=== PATIENT | male | born 1940 | race Caucasian/White ===

== ENCOUNTER 2017-07-07 12:57 | Inpatient (IN) | payer OTHER ==
[~2017-07-07] VITALS: Ht 188 cm; Wt 126.6 kg
[~2017-07-07 12:57] MED LIST: ALLEGRA ALLERG180 MG PO; ASPIR 8181 MG PO; ATORVASTATIN CA40 MG PO; CALCIUM 600 +1 EAC2 PO; CARVEDILOL25 MG PO; CENTRUM SILVER1 EAC4 PO; CLARITIN10 MG PO; DIOVAN 80 MG TA80 M1 PO; FLOMAX0.4 MG PO; HYDROCODON-ACE1 EAC7 PO; LASIX 20 MG TAB20 MG PO; LISINOPRIL10 MG PO; MOBIC15 MG PO; PRILOSEC 20 MG20 MG PO; XARELTO10 MG PO; ZOLOFT50 MG PO
[2017-07-07 13:12] VITALS: BP 103/55
[2017-07-07 13:40] LABS: URINE BILIRUBIN NEGATIVE (Negative); URINE BLOOD 2+ (Negative); URINE CLARITY CLOUDY; URINE COLOR YELLOW; URINE GLUCOSE-RANDOM NEGATIVE (Negative); URINE KETONES NEGATIVE (Negative); URINE LEUKOCYTES-REFLEX 2+ (Negative); URINE NITRITE-REFLEX NEGATIVE (Negative); URINE PROTEIN 2+ (Negative); URINE UROBILINOGEN 0.2 E.U./dl (0.2-1.0)
[2017-07-07 13:45] LABS: BACTERIA-REFLEX >30 Many /HPF (None Seen); URINE WBC-REFLEX >25 Many /HPF (0-5)
[2017-07-07 13:46] LABS: CASTS None Seen /LPF (None Seen); CRYSTALS None Seen /LPF (None Seen); SQUAMOUS NONE SEEN /LPF (0-3); WBC CLUMPS Many (None Seen)
[2017-07-07 13:51] LABS: INFLUENZA A ANTIGEN None Detected (None Detect); INFLUENZA B ANTIGEN None Detected (None Detect)
[2017-07-07 14:00] LABS: HEMATOCRIT 29.9 % (42.0-52.0); HEMOGLOBIN 9.9 gm/dL (14.0-18.0); MCH 26.9 pg (26.0-34.0); MCHC 33.2 g/dL (28.0-37.0); MCV 80.9 fL (80.0-100.0); MPV 7.4 fl. (7.2-11.1); NUCLEATED RBCS 0 /100WBC; PLATELET COUNT* 130 thou/uL (150-400); RBC 3.69 mil/uL (4.50-6.00); RDW-CV 16.6 % (10.5-14.5); WBC 8.9 thou/uL (4.0-11.0)
[2017-07-07 14:13] LABS: CALCIUM 8.8 mg/dL (8.5-10.1); CREATININE 1.3 mg/dL (0.6-1.3); POTASSIUM 3.8 mmol/L (3.5-5.1)
[2017-07-07 14:20] LABS: ALBUMIN 3.1 g/dL (3.4-5.0); TOTAL BILIRUBIN 1.2 mg/dL (<0.1-1.0); TOTAL PROTEIN 6.7 g/dL (6.4-8.2); TROPONIN-I LEVEL 0.09 ng/mL (<0.06)
[2017-07-07 14:23] LABS: ABSOLUTE LYMPHOCYTES 0.7 thou/uL (0.8-5.3); ABSOLUTE MONOCYTES 0.6 thou/uL (0.0-1.2); ABSOLUTE NEUTROPHILS 7.6 thou/uL (1.6-8.1); MACROCYTES 1+; PLATELET ESTIMATE ADEQUATE
[2017-07-07 17:18] VITALS: BP 109/49
[2017-07-07 18:00] VITALS: BP 116/56
[2017-07-07] MEDS ORDERED: CIPRO500 MG PO (18:29)
--- NOTE | 2017-07-07 18:38 | NUR ---
RECEIVED REPORT FROM DAYSI IN ER. PT ARRIVED TO TELE FLOOR AT 1735. VSS. O2 SAT 94% ON ROOM AIR, BUT QUICKLY FELL TO 86% - 2L PER NC PLACED. CARDAIC MONITOR PLACED TRACING SR BBB. ADMISSION ASSESSMENT, HISTORY, EDUCATION AND VITAL SIGNS COMPLETED CHARTED. PT ORIENTED TO ROOM, BED, AND CALL LIGHT. STRIP PRINTED AND PUT IN CHART. FALL AGREEMENT AND MEDICARE FORM SIGNED. PT FALL RISK; FALL PRECATUIONS IN PLACE. MEDS RECONCILED. PT A&O X4. UP WITH ASSIT TO THE BATHROOM. PT REPORTS DYSURIA AND CONSTANT PAIN IN LOWER ABDOMEN, /, THAT HAS BEEN GOING ON FOR WEEKS. AT BEDSIDE. PT EATING AND DRINKING WITHOUT ISSUE. HOURLY ROUNDING. CALL LIGHT IS WITHIN REACH. WILL CONTINUE TO MONITOR FOR DURATION OF SHIFT.
[2017-07-07 20:30] VITALS: BP 116/57
[2017-07-08] VITALS (7 sets, daily range): BP systolic 102–136; BP diastolic 51–80
--- NOTE | 2017-07-08 04:23 | NUR ---
ASSUMED CARE AT 1930, ASSESSMENT CHARTED. PATIENT ALERT/ORIENTED X4, RESTING IN BED. UP WITH ASSIST. DENIES PAIN OR NEEDS. REFUSING SCD'S. MEDS PER MAR. FALL PRECAUTIONS IN PLACE. AT BEDSIDE. DR. MANTILLA NOTIFIED REGARDING HOME MEDS, ORDERS RECEIVED AND NOTED. BED ALARM ON. CALL LIGHT WITHIN REACH, ENCOURAGED TO CALL FOR NEEDS.
--- NOTE | 2017-07-08 10:35 | NUR ---
RECEIVED REPORT FROM ALONDRA BARCENAS. ASSUMED PT CARE AT 0735. PT LAYING IN BED. URINAL HAS APPROX 100 ML CLOUDY, YELLOW URINE WITH FOUL ODOR AT 0830. DR. PHILLIPS ROUNDED, ORDER FOR CT PELVIS PLACED, CLARIFIED PT HAD CT ABD PELVIS 07/07/17. CT PELVIS CANCELLED PER VICE PRESIDENT QUALITY IMPROVEMENT ISAAC MARTINEZ. ORDER NOTED FOR PVR BLADDER SCANS. URINAL EMPTIED OF 100 MLS URINE AT 1035. BLADDER SCAN AT THIS TIME SHOWS 162 MLs IN BLADDER. EDUCATION GIVEN TO PT ON RATIONALE FOR SCANS OF BLADDER POST VOID. PT STATES ACCEPTANCE AND UNDERSTANDING OF TEACHING.
--- NOTE | 2017-07-08 11:35 | NUR ---
PT CALLED OUT FOR ASSIST TO BR. URINAL HAS 40 MLs POST VOID. PT PROVIDED PRIVACY AND EDUCATION THAT BLADDER SCAN WOULD BE OBTAINED AGAIN AND IS IN AGREEMENT. BLADDER SCAN SHOWS 47 MLs PVR.
--- NOTE | 2017-07-08 15:00 | NUR ---
RECEIVED REPORT FROM LEONARD RN AT 0720. PT IN ROOM SITTING ON EDGE OF BED, AFTER USING URINAL. 100 MLS OF FOUL SMELLING, CLOUDY URINE EMTPIED. VS OBTAINED. ASSESSMENT COMPLETE. SR BBB ON TELE MONITOR. ORDER NOTED FROM DR. PHILLIPS TO USE BLADDER SCAN FOR PVR. PV OBTAINED AND DOCUMENTED. NEEDED ITEMS AND CALL LIGHT IN REACH. PT CHANGED TO MED/SURG STATUS. PT WILL BE TRANSPORTED TO ROOM 102. REPORT CALLED TO ALONDRA ECHEVERRIA.
--- NOTE | 2017-07-08 16:23 | EKG ---
[place] [address] ELECTROCARDIOGRAM REPORT Name: CHANEL SYKES JR Room: [address] ADM IN M.R.#: [id number] Admission: 07/07/17 Attend Phys: Marychuy Mccauley Discharge: Date of : 42 Report #: [id number] THIS REPORT FOR: //name// [facility] ED Test Date: 2017-07-07 Test Time: 13:13:43 Pat Name: CHANEL SYKES Department: Room: [facility] Gender: M Counseling Services Director: [place] : 1940 Requested By: Fanta Mcconnell Order Number: [id number] MD: Alex Nascimento Measurements Intervals [place] Rate: 105 P: 3 MD: 151 QRS: -27 QRSD: 147 T: 138 QT: 368 QTc: 487 Interpretive Statements Sinus tachycardia Left bundle branch block Baseline wander in lead(s) V2 Compared to ECG 05/30/2017 09:07:07 heart rate has increased Electronically Signed On 07-08-2017 16:23:08 BLUEPRINTING MACHINE OPERATOR by Alex Nascimento [email or web address] <ELECTRONICALLY SIGNED> By: Alex Nascimento MD, [facility] 07/08/17 1623 1313 1313 Alex Nascimento MD, [facility] /EPI
--- NOTE | 2017-07-08 17:31 | NUR ---
PT TRANSFERED FROM 2W TO UNIT AT 1447. ASSESSMENT WAS PERFORMED AND DOCUMENTED. ORIENTATED PT TO NEW ROOM AND SURROUNDINGS. PRV WAS TAKEN AND LESS THAN 24ML. PT IS IN GOOD SPIRITS AND GOAL IS TO DISCHARGE TOMORROW. CALL LIGHT IS IN REACH AND BED IN LOWEST AND LOCKED POSITION. FALL PRECUATIONS ARE IN PLACE AND BED ALARM IS SET. PT IS DENIES NEEDS AND WANTS. NO C/O PAIN BUT DOES C/O DISCOMFORT IN THE PELVIC AREA WHEN NEEDING TO EMPTY BLADDER.
[2017-07-09 00:34] VITALS: BP 128/58
[2017-07-09 04:29] LABS: ABSOLUTE EOSINOPHILS 0.1 thou/uL (0.0-0.7); ABSOLUTE MONOCYTES 0.5 thou/uL (0.0-1.2); ABSOLUTE NEUTROPHILS 3.6 thou/uL (1.6-8.1); BASOPHILS 0.2 %; EOSINOPHILS 1.2 %; HEMATOCRIT 26.2 % (42.0-52.0); HEMOGLOBIN 8.5 gm/dL (14.0-18.0); LYMPHOCYTES 20.2 %; MCH 26.3 pg (26.0-34.0); MCHC 32.6 g/dL (28.0-37.0); MCV 80.8 fL (80.0-100.0); MONOCYTES 8.9 %; NUCLEATED RBCS 0 /100WBC; PLATELET COUNT* 93 thou/uL (150-400); POLYS 69.5 %; RBC 3.24 mil/uL (4.50-6.00); RDW-CV 16.6 % (10.5-14.5); WBC 5.1 thou/uL (4.0-11.0)
--- NOTE | 2017-07-09 05:10 | NUR ---
PT. PROGRESSING TOWARDS GOALS, DID NOT USE CALL LIGHT LAST VOID, 300CC EMPTIED OUT OF URINAL, REINSTRUCTED TO CALL NURSE AFTER VOIDING. WILL CONTINUE TO MONITOR.
[2017-07-09 05:52] LABS: CALCIUM 8.5 mg/dL (8.5-10.1); CREATININE 1.1 mg/dL (0.6-1.3); POTASSIUM 4.1 mmol/L (3.5-5.1)
[2017-07-09 09:00] VITALS: BP 140/73
--- NOTE | 2017-07-09 15:00 | NUR ---
VISITED WITH PT. HE IS NONE TO CM FROM PREVIOUS SURGERY IN MAY. HE SAID HE IS GETTING ALONG REALLY WELL FROM KNEE SURGERY. HE IS USING A CANE BUT HAS A WALKER AT HOME. USED [facility] AFTER DISCHARGE. HE LIVES WITH HIS AND SHE CAN ASSIST HIM AT DISCHARGE NEEDED. CM WILL FOLLOW FOR ANY DISCHARGE NEEDS.
[2017-07-09 16:20] VITALS: BP 126/66
--- NOTE | 2017-07-09 17:49 | NUR ---
PATIENT IS ALERT AND ORIENTED VERY PLEASANT. NO COMPLAINTS OF ANY KIND TODAY. VITAL SIGNS STABLE ON ROOM AIR, CALL LIGHT IS IN REACH. FAMILY AT BEDSIDE PART OF THE DAY. PATIENT IS VOIDING AND STILL HAVING RETENTION. NEW ANTIBIOTICS STARTED. IV IN RIGHT AC WORKS WELL. WILL CONTINUE TO MONITOR.
[2017-07-09 20:30] VITALS: BP 131/60
[2017-07-10 04:44] LABS: ALBUMIN 2.5 g/dL (3.4-5.0); CALCIUM 8.6 mg/dL (8.5-10.1); CREATININE 1.1 mg/dL (0.6-1.3); POTASSIUM 4.4 mmol/L (3.5-5.1); TOTAL BILIRUBIN 0.3 mg/dL (<0.1-1.0); TOTAL PROTEIN 6.1 g/dL (6.4-8.2)
[2017-07-10 04:53] LABS: ABSOLUTE EOSINOPHILS 0.1 thou/uL (0.0-0.7); ABSOLUTE LYMPHOCYTES 0.9 thou/uL (0.8-5.3); ABSOLUTE MONOCYTES 0.4 thou/uL (0.0-1.2); ABSOLUTE NEUTROPHILS 2.1 thou/uL (1.6-8.1); BASOPHILS 0.3 %; EOSINOPHILS 3.1 %; HEMATOCRIT 25.4 % (42.0-52.0); HEMOGLOBIN 8.5 gm/dL (14.0-18.0); LYMPHOCYTES 25.8 %; MCH 26.6 pg (26.0-34.0); MCHC 33.3 g/dL (28.0-37.0); MCV 79.9 fL (80.0-100.0); MONOCYTES 12.4 %; MPV 8.3 fl. (7.2-11.1); NUCLEATED RBCS 0 /100WBC; PLATELET COUNT* 102 thou/uL (150-400); POLYS 58.4 %; RBC 3.18 mil/uL (4.50-6.00); RDW-CV 16.6 % (10.5-14.5); WBC 3.5 thou/uL (4.0-11.0)
--- NOTE | 2017-07-10 07:35 | NUR ---
Alert and oriented x 4. He is up independently in his room. He voided last night and PVR was 160 mls. He denies pain or nausea. This am IV in right AC came out. He did lose some of his IV antibiotic but its believed most of it went in. New IV started in left forearm 20 gauge. He has slept well.
[2017-07-10 08:25] VITALS: BP 141/80
[2017-07-10 12:25] VITALS: BP 141/80
--- NOTE | 2017-07-10 12:44 | CON ---
[address] [address] CONSULTATION Name: ISIDORO SYKES JR Room: [address] IN .R.#: [id number] Admission: 07/07/17 Attend Phys: Marychuy Mccauley Discharge: Date of : 42 Report #: [id number] THIS REPORT FOR: //name// CC: Andrea Lund DATE OF SERVICE: 07/09/2017 ATTENDING PHYSICIAN: Amarjit Lund DO REASON FOR EVALUATION: Complicated urinary tract infections with isolation of multiple resistant Escherichia coli that does carry an ESBL gene, may well have prostatitis as well. HISTORY OF PRESENT ILLNESS: Chart reviewed, patient examined. This is a 76-year-old male with known vasculopathy who underwent left total knee arthroplasty in mid May. Postop course was complicated by urinary tract infection, was evaluated by Urology, treated including ciprofloxacin which he received an extended course due to concern about prostatitis, having completed the therapy fairly recently. He presented to the Emergency Room on the with fever, chills, dysuria, some nausea; was confirmed to have marked pyuria with microscopic examination of the urine. Urine culture now with growth of Escherichia coli that is greater than 10 to the fifth that is ESBL producing, notably resistant to quinolones. He is still moderately symptomatic. He is not encephalopathic. Denies any pulmonary related complaints. ALLERGIES: None known. MEDICINES: Include enoxaparin, pantoprazole, ciprofloxacin, furosemide, meloxicam, tamsulosin, carvedilol, aspirin, sertraline, atorvastatin. PAST MEDICAL HISTORY: As noted above, has coronary artery stents, reflux, hypertension, hyperlipidemia, elevated prostate specific antigen, negative biopsy, total knee arthroplasty on the left. SOCIAL HISTORY: Nonsmoker, no ethanol. FAMILY HISTORY: Noncontributory. REVIEW OF SYSTEMS: Denies significant pulmonary-related complaints. PHYSICAL EXAMINATION: GENERAL: He is alert, cooperative, appropriate. He is not encephalopathic. VITAL SIGNS: T-max 100.9 last evening, more recently 98; pulse 80; respirations 16; blood pressure 140/73. SKIN: Warm, dry[place] [address] CONSULTATION Name: ISIDORO SYKES JR Room: [address]#: [id number] Admission: 07/07/17 Attend Phys: Marychuy Mccauley Discharge: Date of : 42 Report #: [id number] HEENT: Unremarkable. NECK: Supple. LUNGS: Diminished, otherwise clear breath sounds. HEART: Regular. I do not appreciate any murmur. ABDOMEN: Soft, nontender, nondistended. EXTREMITIES: No cyanosis. GENITOURINARY: Deferred. RECTAL: Deferred. LABORATORY DATA: Blood cultures sterile thus far. Urine culture with greater than 10 to the fifth Escherichia coli that is in vitro susceptible to amikacin, gentamicin, imipenem, nitrofurantoin, Zosyn and Bactrim. Electrolytes: Sodium 141, potassium 4.1, chloride 107, bicarbonate is 26, BUN and creatinine 21 and 1.1. CBC: White count of 5.1, H and H 8.5 and 26.2, platelets of 93. CT abdomen and pelvis showed no acute process, prostate enlargement with bladder wall thickening, possible from hypertrophy or outlet obstruction. Lactic acid 2.0. Liver functions unrevealing. Albumin 31, total protein of 6.7. Estimated GFR of 54. Chest x-ray: No acute process. Influenza antigen was negative. Urinalysis: Greater than 25 white cells, greater than 30 bacteria. ASSESSMENT AND PLAN: Complicated urinary tract infection. I certainly appreciate may well have had, in addition to cystitis, prostatic inflammation as well. We will continue parenteral antimicrobial therapy. Did go and talk in detail with the patient and spouse. See how he does over the next 24-48 hours, perhaps may at that point be able to transition to oral therapy; Bactrim may be our best option at this point to complete the therapy. <ELECTRONICALLY SIGNED> By: Isidoro Pal MD 07/10/17 1244 1256 0255Jobabita Pal MD /nt
[2017-07-10] MEDS ORDERED: BACTRIM DS TAB1 EACH PO (14:02)
--- NOTE | 2017-07-10 14:06 | NUR ---
ASSUMED CARE OF PATIENT AFTER SHIFT CHANGE THIS MORNING. PATIENT AWAKE, ALERT, AND ORIENTED APPROPRIATELY. PHYSICAL ASSESSMENT COMPLETED AND CHARTED. NO COMPLAINTS OF PAIN. SCHEDULED MEDICATIONS GIVEN, SEE EMAR FOR DOCUMENTATION. VITAL SIGNS STABLE. OXYGEN SATURATION WITHIN NORMAL LIMITS ON ROOM AIR. PATIENT HAS BEEN UP AD JUAN PABLO. USES CALL LIGHT APPROPRIATELY. RECEIVED ORDERS TO DISCHARGE PATIENT HOME. NURSING WILL CONTINUE TO MONITOR UNTIL DISCHARGE.
--- NOTE | 2017-07-10 15:16 | NUR ---
DISCHARGE PAPERWORK COMPLETED AND SIGNED BY ALL APPROPRIATE PARTIES, ON PATIENT'S CHART. DISCUSSED WITH PATIENT. SCRIPTS GIVEN TO PATIENT AND DISCUSSED. ALL QUESTIONS ANSWERED. PATIENT DISCHARGED AT 1515. ESCORTED TO PARKING LOT BY THIS NURSE.
== END 2017-07-10 15:15 | disposition home or self-care (01) | DRG 872 ==
LOC: M.ERS 12:57 → M.TBA-ER 16:20 → M.2W 16:20 → M.ORTHSURG 07-08 14:55
PROVIDERS: Internal Medicine; Nurse Practitioner Family; ADMIT Internal Medicine
DX: A41.9 Sepsis, unspecified organism (principal); E44.1 Mild protein-calorie malnutrition; N39.0 Urinary tract infection, site not specified; N41.9 Inflammatory disease of prostate, unspecified; D50.0 Iron deficiency anemia secondary to blood loss (chronic); Z96.652 Presence of left artificial knee joint; K21.9 Gastro-esophageal reflux disease without esophagitis; I10 Essential (primary) hypertension; E78.5 Hyperlipidemia, unspecified; B96.20 Unspecified Escherichia coli [E. coli] as the cause of diseases classified elsewhere; I25.10 Atherosclerotic heart disease of native coronary artery without angina pectoris; D69.6 Thrombocytopenia, unspecified; Z79.899 Other long term (current) drug therapy; Z79.82 Long term (current) use of aspirin; Z95.5 Presence of coronary angioplasty implant and graft; Z68.35 Body mass index [BMI] 35.0-35.9, adult

== ENCOUNTER 2017-08-11 09:07 | Inpatient (IN) | payer OTHER ==
[~2017-08-11] VITALS: Ht 188 cm; Wt 115.2 kg
[~2017-08-11 09:07] MED LIST changes: +BACTRIM DS TAB1 EACH PO; +CIPRO500 MG PO
[2017-08-11 09:09] VITALS: BP 150/65
[2017-08-11 10:04] LABS: ABSOLUTE EOSINOPHILS 0.1 thou/uL (0.0-0.7); ABSOLUTE LYMPHOCYTES 1.7 thou/uL (0.8-5.3); ABSOLUTE MONOCYTES 0.4 thou/uL (0.0-1.2); ABSOLUTE NEUTROPHILS 2.8 thou/uL (1.6-8.1); BASOPHILS 0.4 %; EOSINOPHILS 1.5 %; HEMOGLOBIN 10.1 gm/dL (14.0-18.0); LYMPHOCYTES 34.2 %; MCH 25.9 pg (26.0-34.0); MCHC 32.6 g/dL (28.0-37.0); MCV 79.5 fL (80.0-100.0); MONOCYTES 7.1 %; MPV 7.5 fl. (7.2-11.1); NUCLEATED RBCS 0 /100WBC; PLATELET COUNT* 227 thou/uL (150-400); POLYS 56.8 %; RDW-CV 17.4 % (10.5-14.5)
[2017-08-11 10:08] LABS: CALCIUM 8.9 mg/dL (8.5-10.1); CREATININE 1.2 mg/dL (0.6-1.3); POTASSIUM 4.1 mmol/L (3.5-5.1)
[2017-08-11 10:15] LABS: ALBUMIN 3.4 g/dL (3.4-5.0); TOTAL BILIRUBIN 0.4 mg/dL (<0.1-1.0); TOTAL PROTEIN 7.1 g/dL (6.4-8.2); TROPONIN-I LEVEL 0.12 ng/mL (<0.06)
[2017-08-11 10:55] LABS: URINE BILIRUBIN NEGATIVE (Negative); URINE BLOOD TRACE (Negative); URINE CLARITY CLEAR; URINE COLOR YELLOW; URINE GLUCOSE-RANDOM NEGATIVE (Negative); URINE KETONES NEGATIVE (Negative); URINE LEUKOCYTES-REFLEX NEGATIVE (Negative); URINE NITRITE-REFLEX NEGATIVE (Negative); URINE PROTEIN NEGATIVE (Negative); URINE UROBILINOGEN 0.2 E.U./dl (0.2-1.0)
--- NOTE | 2017-08-11 12:35 | NUR ---
RODRIGO NOTIFIED UPON PT RETURN FROM CT. PT CONNECTED TO MONITOR
[2017-08-11 14:02] VITALS: BP 142/53
[2017-08-11 14:39] VITALS: BP 127/60
[2017-08-11 14:45] VITALS: BP 127/60
--- NOTE | 2017-08-11 18:50 | NUR ---
FARZAD RESTING IN BED. DENIES CHEST PAIN. MED REC, MEDCIATION EDUCATION, AND NEW ORDERS RECEIVED. KALANET TO HAVE DIAGNOSTIC CATH TOMORROW WITH POSSIBLE INTERVENTION, PER DR BEAL. VITAL SIGNS STABLE. HOULRY ROUNDING COMPLETED FOR PATIENT SAFETY.
[2017-08-11 20:10] VITALS: BP 126/56
[2017-08-11 23:53] VITALS: BP 124/61
[2017-08-12] VITALS (14 sets, daily range): BP systolic 132–153; BP diastolic 57–88
--- NOTE | 2017-08-12 04:51 | NUR ---
PATIENT HAS REMAINED ALERT AND ORIENTED X 4 THROUGHOUT THE SHIFT AND RESTING QUIETLY ON HOURLY ROUNDS. PATIENT REPORTED RIGHT BACK SPASMS TONIGHT. DR. SARABIA NOTIFIED AND A ONE TIME ORDER FOR IV FENTANYL WAS PROVIDED TO GOOD EFFECT. NPO AT MIDNIGHT FOR CARDIAC CATH TODAY. CONSENT SIGNED. PATIENT REMAINS ON HEPARIN DRIP. VITAL SIGNS STABLE. DENIES CHEST PAIN OR SHORTNESS OF AIR. CONTINUE TO MONITOR.
[2017-08-12 05:08] LABS: CALCIUM 8.4 mg/dL (8.5-10.1); CREATININE 1.1 mg/dL (0.6-1.3); POTASSIUM 3.7 mmol/L (3.5-5.1)
[2017-08-12 05:12] LABS: ABSOLUTE EOSINOPHILS 0.1 thou/uL (0.0-0.7); ABSOLUTE MONOCYTES 0.3 thou/uL (0.0-1.2); ABSOLUTE NEUTROPHILS 2.5 thou/uL (1.6-8.1); BASOPHILS 0.5 %; EOSINOPHILS 1.5 %; HEMATOCRIT 27.9 % (42.0-52.0); HEMOGLOBIN 9.2 gm/dL (14.0-18.0); LYMPHOCYTES 40.2 %; MCH 25.7 pg (26.0-34.0); MCV 77.9 fL (80.0-100.0); MPV 7.4 fl. (7.2-11.1); NUCLEATED RBCS 0 /100WBC; PLATELET COUNT* 205 thou/uL (150-400); POLYS 50.8 %; RBC 3.58 mil/uL (4.50-6.00); RDW-CV 17.1 % (10.5-14.5)
[2017-08-12 05:47] LABS: CHOLESTEROL 127 mg/dL (<200); HDL CHOLESTEROL 39 mg/dL (>40); LDL CHOLESTEROL 69 mg/dL (<100); TC:HDL 3.3 Ratio (Not establshd); TRIGLYCERIDE 98 mg/dL (<150); VLDL 20 mg/dL (<40)
[2017-08-12 05:56] LABS: SERUM ASSESSMENT Clear
[2017-08-12 08:56] LABS: INR 1.1; PROTIME 10.6 Seconds (9.20-11.50)
[2017-08-12 09:30] LABS: CHOLESTEROL 128 mg/dL (<200); HDL CHOLESTEROL 40 mg/dL (>40); LDL CHOLESTEROL 70 mg/dL (<100); SERUM ASSESSMENT Clear; TC:HDL 3.2 Ratio (Not establshd); TRIGLYCERIDE 91 mg/dL (<150); VLDL 18 mg/dL (<40)
--- NOTE | 2017-08-12 10:48 | EKG ---
[place] [address] ELECTROCARDIOGRAM REPORT Name: CHANEL SYKES JR Room: [place] [address] ADM IN .R.#: [id number] Admission: 08/11/17 Attend Phys: Edgar Ford MD Discharge: Date of : 42 Report #: [id number] THIS REPORT FOR: //name// [facility] ED Test Date: 2017-08-11 Test Time: 09:12:37 Pat Name: CHANEL SYKES Department: Room: [facility] Gender: M Tread Cutter: VINCENT : 1940 Requested By: Jannet Agosto Order Number: [id number] : Vernon Cazares Measurements Intervals [place] Rate: 60 P: -7 NM: 181 QRS: -25 QRSD: 165 T: 128 QT: 455 QTc: 455 Interpretive Statements Sinus rhythm Left bundle branch block Compared to ECG 07/07/2017 13:13:43 Sinus tachycardia no longer present Electronically Signed On 08-12-2017 10:48:34 WAX POT TENDER by Vernon Cazares [email or web address] <ELECTRONICALLY SIGNED> By: Vernon Cazares MD, [facility] 08/12/17 1048 0912 09 Vernon Cazares MD, [facility] /EPI
--- NOTE | 2017-08-12 11:53 | NUR ---
CM ASSESSMENT: Pt is A&0. Resides at home with and son. in room at bedside. Independent with ADLS. Pt has a walker and cane at home, but states that he doesn't need to use them at this time. Hx of [facility]. No hx of SNF. Pt is currently going to outpt PT at [facility]. Pt to have cardiac cath today. Goal is to return home once medically stable.
--- NOTE | 2017-08-12 17:25 | EKG ---
[place] [address] ELECTROCARDIOGRAM REPORT Name: CHANEL SYKES JR Room: [place] [address] ADM IN M.R.#: [id number] Admission: 08/11/17 Attend Phys: Edgar Ford MD Discharge: Date of : 42 Report #: [id number] THIS REPORT FOR: //name// [facility] Test Date: 2017-08-12 Test Time: 12:56:57 Pat Name: CHANEL SYKES Department: Room: [place] [address] Gender: M Marketing Coordinator: SERINA : 1940 Requested By: Vernon Cazares Order Number: [id number] Danyelle MD: Vernon Cazares Measurements Intervals [place] Rate: 56 P: 27 RI: 189 QRS: -25 QRSD: 161 T: 161 QT: 482 QTc: 466 Interpretive Statements Sinus bradycardia Left bundle branch block Compared to ECG 08/11/2017 09:12:37 No significant changes Electronically Signed On 08-12-2017 17:25:35 [employer] WORK[employer] by Vernon Cazares [email or web address] <ELECTRONICALLY SIGNED> By: Vernon Cazares MD, [facility] 08/12/17 1725 1256 1256 Vernon Cazares MD, [facility] /EPI
--- NOTE | 2017-08-12 17:50 | CARD ---
[address] [address] CARDIAC CATH REPORT Name: CHANEL SYKES JR Room: [address] IN [facility]#: [id number] Admission: 08/11/17 Attend Phys: Edgar Ford MD Discharge: Date of : 42 Report #: [id number] THIS REPORT FOR: //name// APPROVED REPORT Patient Details Patient Status: In-Patient Room #: The patient is a 76 year-old male Event Personnel Vernon Cazares Scissors Sharpener, Lauren Craven RTR Monitor, Mildred Byrne RN, Moe Houston (R) Scrub Procedures Performed EVELINA Place w/wo Plasty Single DIAG [id number] , Coronary Angiography with grafts, Left Heart Catheterization R radial artery Left Heart Cath w/LT [facility] [id number] CL Indication Abnormal ECG, Chest pain Risk Factors Arterial Hypertension, Coronary Artery Disease Previous Procedures/Diagnoses Previous PCI Admission/Lab Medications/Medications given during procedure Heparin Unfract. Procedure Narrative The patient was brought electively to the Cardiac Catheterization Laboratory and was prepped and draped in a sterile manner. The right wrist was infiltrated with 1% Lidocaine subcutaneous anesthesia. A 6 fr sheath was inserted into the right radial artery. Coronary angiography was performed using coronary diagnostic catheters. The right coronary system was accessed and visualized with a Diagnostic catheter. The left coronary system was accessed and visualized with a Diagnostic catheter. The left ventricle was accessed and visualized with a Diagnostic catheter. Left ventricular/Aortic Valve gradient assessed via catheter pullback. Left ventriculogram was performed in BUCK projection. Closure device was deployed with a 6 Fr vascband. The patient tolerated the procedure well and there were no complications associated with the procedure. [place] [address] CARDIAC CATH REPORT Name: CHANEL SYKES JR Room: [address]#: [id number] Admission: 08/11/17 Attend Phys: Edgar Ford MD Discharge: Date of : 42 Report #: [id number] Intraoperative Conscious Sedation Sedation start time: 1135 Case end Time: 1224 Fentanyl 25 mcg Dose: 1823 mGy Contrast Type and Amount: Omnipaque 355 ml Coronary Angiography The patient's coronary anatomy is right dominant. Diagnostic Cath Left Main 0% stenosis LAD 30% proximal and 50% mid Diagonal 2 80% proximal stenosis Circumflex 0% stenosis Right Coronary stent noted proximally with 30% restenosis Ramus 0% stenosis Left Ventriculography The left ventricular ejection fraction is estimated to be 40-45%. Left ventricular wall motion abnormalities are present. There is no mitral insufficiency. moderate apical hypokinesis noted Hemodynamics The left ventricular end diastolic pressure is 25 mmHg. There was no gradient across the aortic valve upon pullback. Pullback from the left ventricle to the aorta revealed no gradient across the aortic valve. PCI Technique Lesion Anticoagulation was achieved with Heparin. Patient was preloaded with Brillinta. Percutaneous coronary intervention was performed on the second diagonal branch segment. The lesion stenosis prior to intervention was 80% with JNOATAN 3 flow. A xb3.5 Guide Catheter was used to engage the lm ostium. A bmw Interventional Guidewire was used to cross the lesion. BALLOON DILATION A Balloon catheter 8 mm x 2.0 mm was inserted and inflated up to 14atm for 13seconds. Repeat angiography revealed the following post-dilatation results: 60% stenosis. STENT DEPLOYMENT A drug-eluting stent 14mm x 2.5 mm was inserted and inflated up to 7.00atm for 11seconds. Repeat [place] [address] CARDIAC CATH REPORT Name: CHANEL SYKES JR Room: [address] IN [facility]#: [id number] Admission: 08/11/17 Attend Phys: Edgar Ford MD Discharge: Date of : 42 Report #: [id number] post-stent deployment results: 0% stenosis. Additional Inflation: 8.00atm for 15seconds. Additional Inflation: 8.00atm for 14seconds. Additional Inflation: 10.00 deidra for 21 seconds done. Final angiography reveals 0 % stenosis with JONATAN 3 flow. Conclusion 1. 80% stenosis noted of the second diagonal branch of the LAD 2. no restenosis noted of the stent in the RCA 3. successful placement of a drug eluting stent in the second diagonal branch of the lad Recommendations Cardiac Rehabilitation Referral Aggressive Medical Therapy Medications Administered Ticagrelor <ELECTRONICALLY SIGNED> By: Vernon Cazares MD, [facility] 08/12/171749 49 49Daviraheem Cazares MD, [facility] /INF
--- NOTE | 2017-08-12 17:53 | CON ---
[address] [address] CONSULTATION Name: CHANEL SYKES JR Room: [place] [address] ADM IN M.R.#: [id number] Admission: 08/11/17 Attend Phys: Edgar Ford MD Discharge: Date of : 42 Report #: [id number] THIS REPORT FOR: //name// CC: Edgar Scott MD [facility] physician/PCP Andrea sAhford DO DATE OF SERVICE: 08/11/2017 CARDIOLOGY CONSULTATION INDICATION: Non-ST elevation myocardial infarction. HISTORY OF PRESENT ILLNESS: The patient is a very pleasant 76-year-old gentleman who was seen in the Emergency Room this morning with 2 complaints. He has been having some spasms involving his right lower back throughout the night. This morning when he got up, he also had some chest discomfort radiating to both arms. The patient's initial troponin was minimally elevated and subsequent troponins elevated to 0.2. His EKG showed sinus rhythm with left bundle branch block. In the Emergency Room, he was given aspirin, heparin and nitroglycerin with resolution of his chest discomfort. At the time of my interview, he is pain free. He does have a history of coronary artery disease with percutaneous coronary intervention at [facility] in 2005. He has had no intervention subsequent to that. He is without other cardiac complaints at this time. Cardiac risk factors include hypertension and dyslipidemia. PAST MEDICAL HISTORY: 1. Hypertension. 2. Hyperlipidemia. 3. Coronary artery disease. 4. Chronic left bundle branch block. 5. DJD. 6. BPH. 7. recent urinary tract infection with E. coli. PAST SURGICAL HISTORY: Left total knee replacement. FAMILY HISTORY: Noncontributory. SOCIAL HISTORY: The patient quit smoking in 1982. He does not drink alcohol. He is . ALLERGIES: None. CURRENT MEDICATIONS: Aspirin 81 mg daily, atorvastatin 80 mg daily, calcium [address] [place] [address] CONSULTATION Name: CHANEL SYKES Room: [address]#: [id number] Admission: 08/11/17 Attend Phys: Edgar Ford MD Discharge: Date of : 42 Report #: [id number] plus vitamin D 1 tablet daily, carvedilol 25 mg b.i.d., furosemide 20 mg daily, meloxicam 15 mg daily, Centrum Silver 1 tablet daily, omeprazole 20 mg daily, sertraline 100 mg daily, valsartan 160 mg daily. REVIEW OF SYSTEMS: A 14-point review of systems is positive for sinus congestion, remote history of pneumonia, chest discomfort as outlined above, dyspnea on exertion without orthopnea or paroxysmal nocturnal dyspnea, urinary tract infection in May associated with hematuria. 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 He wears glasses without acute visual change and has decreased hearing for which he wears hearing aids. Otherwise, 14-point review of systems was unremarkable. PHYSICAL EXAMINATION: VITAL SIGNS: Stable. Blood pressure 140/42, pulse 58 and regular. GENERAL: This is a pleasant elderly gentleman, in no distress. Mood and affect appropriate. HEENT: The patient is wearing glasses. Extraocular muscles intact. Mucous membranes are moist. NECK: Shows no jugular venous distention. There are no carotid bruits. CHEST: Reveals clear lung meredith without wheezes, rales or rhonchi. CARDIOVASCULAR: Reveals a regular rhythm without gallop or murmur. ABDOMEN: Reveals normal bowel sounds. The abdomen is soft and nontender. EXTREMITIES: Shows no clubbing, cyanosis or edema. Peripheral pulses 2+ and palpable. SKIN: Warm and dry. The patient is alert and oriented x 3. A 12-lead EKG shows sinus rhythm with left bundle branch block. Labs are reviewed. Initial troponin was 0.12. Subsequent troponin 0.21. Chest x-ray shows no acute process. IMPRESSION AND RECOMMENDATIONS: 1. Non-ST elevation myocardial infarction. Continue aspirin. Continue heparin drip. Nitroglycerin p.r.n. Plan, coronary angiography in the a.m. to further define coronary anatomy, intervention pending those results. 2. Hypertension. Continue home medications as outlined above. Blood pressure adequately controlled presently. 3. Hyperlipidemia. Continue atorvastatin 80 mg at bedtime. 4. Gastroesophageal reflux disease. Continue proton pump inhibitor at current dose. <ELECTRONICALLY SIGNED> By: Doyle Velasco MD, [facility] 08/12/17 1753 1337 181Doyle Velasco MD, FACC /nt
--- NOTE | 2017-08-12 18:40 | NUR ---
PATINET RESTING IN BED. RADIAL BAND REMOVED AND RIGHT WRIST CATH SITE CLEAN DRY AND INTACT WITH NO SIGNS OF HEMATOMA. RIGHT WRIST AND HAND HAS BRUISING. VITAL SIGNS STABLE AND PATINET IN NO APPARENT SIGNS OF DISTRESS. HOURLY ROUNDING COMPLETD FOR PATIENT SAFETY. POST CATHETERIZATION VITALS AND NEURO CHECKS COMPLETED. PATIENT IS UP AD JUAN PABLO. GOOD APPETITE. MUSCLE RELAXER FOR LOWER BACK SPASMS.
[2017-08-13 01:06] VITALS: BP 137/63
[2017-08-13 04:49] VITALS: BP 135/63
--- NOTE | 2017-08-13 05:06 | NUR ---
PT A/OX4, RA, SR BBB ON THE MONITOR, UP AD JUAN PABLO, VSS, MEDS/ASSESSMENT PER CHARTING, HOURLY ROUNDING/FALL PRECAUTIONS IN PLACE, NO C/O PAIN DURING THIS SHIFT, R-RADIAL CATH SITE BRUISING REMAINS THE SAME WHEN ASSESSED WITH THE DAY RN AT BED SIDE SHIFT CHANGE, ISOLATION FOR ESBL IN 06/2017, WILL CONT TO MONITOR.
[2017-08-13 05:26] LABS: ABSOLUTE EOSINOPHILS 0.1 thou/uL (0.0-0.7); ABSOLUTE LYMPHOCYTES 1.4 thou/uL (0.8-5.3); ABSOLUTE MONOCYTES 0.4 thou/uL (0.0-1.2); BASOPHILS 0.4 %; EOSINOPHILS 1.5 %; HEMOGLOBIN 9.1 gm/dL (14.0-18.0); LYMPHOCYTES 28.5 %; MCH 25.5 pg (26.0-34.0); MCHC 32.6 g/dL (28.0-37.0); MCV 78.3 fL (80.0-100.0); MONOCYTES 8.1 %; MPV 7.2 fl. (7.2-11.1); NUCLEATED RBCS 0 /100WBC; PLATELET COUNT* 232 thou/uL (150-400); POLYS 61.5 %; RBC 3.58 mil/uL (4.50-6.00); RDW-CV 17.8 % (10.5-14.5); WBC 4.9 thou/uL (4.0-11.0)
--- NOTE | 2017-08-13 06:31 | NUR ---
CARDIO-ANSWERING SERVICE CONTACTED DUE TO ELEVATED TROP, PT POST CATH, AWATING RETURN CALL.
[2017-08-13 08:00] VITALS: BP 149/87
[2017-08-13 10:00] VITALS: BP 138/57
[2017-08-13] MEDS ORDERED: FLEXERIL PO (10:28)
[2017-08-13 11:00] VITALS: BP 138/57
--- NOTE | 2017-08-13 11:06 | EKG ---
[place] [address] ELECTROCARDIOGRAM REPORT Name: CHANEL SYKES JR Room: [place] [address] ADM IN M.R.#: [id number] Admission: 08/11/17 Attend Phys: Edgar Ford MD Discharge: Date of : 42 Report #: [id number] THIS REPORT FOR: //name// [facility] Test Date: 2017-08-13 Test Time: 08:45:19 Pat Name: CHANEL SYKES Department: Room: [place] [address] Gender: M Supply Coordinator: : 1940 Requested By: Vernon Cazares Order Number: [id number] Danyelle MD: Vernon Cazares Measurements Intervals [place] Rate: 65 P: -1 CO: 181 QRS: -26 QRSD: 159 T: 190 QT: 451 QTc: 469 Interpretive Statements Sinus rhythm Left bundle branch block Compared to ECG 08/12/2017 12:56:57 Sinus bradycardia no longer present Electronically Signed On 08-13-2017 11:06:39 PROPERTY FIELD ADJUSTER by Vernon Cazares [email or web address] <ELECTRONICALLY SIGNED> By: Vernon Cazares MD, [facility] 08/13/17 1106 0845 0845 Vernon Cazares MD, [facility] /EPI
[2017-08-13] MEDS ORDERED: BRILINTA90 MG PO (12:35)
[2017-08-13] MEDS ORDERED: NITROGLYCERIN0.4 MG SUBLING (12:56)
== END 2017-08-13 13:25 | disposition home or self-care (01) | DRG 246 ==
LOC: M.ERS 09:07 → M.2W 12:42 → M.TBA-ER 12:42 → M.2W 14:13
PROVIDERS: Internal Medicine Cardiovascular Disease; Personal Emergency Response Attendant; ADMIT Internal Medicine
PROC: B2111ZZ Fluoroscopy of Multiple Coronary Arteries using Low Osmolar Contrast (ICD-10-PCS; principal; 2017-08-12)
PROC: 027034Z Dilation of Coronary Artery, One Artery with Drug-eluting Intraluminal Device, Percutaneous Approach (ICD-10-PCS; principal; 2017-08-12)
PROC: 4A023N7 Measurement of Cardiac Sampling and Pressure, Left Heart, Percutaneous Approach (ICD-10-PCS; principal; 2017-08-12)
DX: I21.4 Non-ST elevation (NSTEMI) myocardial infarction (principal); I50.43 Acute on chronic combined systolic (congestive) and diastolic (congestive) heart failure; K21.9 Gastro-esophageal reflux disease without esophagitis; I10 Essential (primary) hypertension; I25.10 Atherosclerotic heart disease of native coronary artery without angina pectoris; M19.90 Unspecified osteoarthritis, unspecified site; N40.0 Benign prostatic hyperplasia without lower urinary tract symptoms; D64.9 Anemia, unspecified; M54.9 Dorsalgia, unspecified; E78.5 Hyperlipidemia, unspecified; Z96.652 Presence of left artificial knee joint; Z95.5 Presence of coronary angioplasty implant and graft; Z87.891 Personal history of nicotine dependence; Z79.82 Long term (current) use of aspirin; Z79.899 Other long term (current) drug therapy

== ENCOUNTER → 2017-08-16 | Outpatient (CLI) | payer OTHER ==
[~2017-08-16] MED LIST changes: +BRILINTA90 MG PO; +FLEXERIL PO; +NITROGLYCERIN0.4 MG SUBLING
[2017-08-16 10:09] LABS: ABSOLUTE EOSINOPHILS 0.1 thou/uL (0.0-0.7); ABSOLUTE LYMPHOCYTES 1.6 thou/uL (0.8-5.3); ABSOLUTE MONOCYTES 0.5 thou/uL (0.0-1.2); ABSOLUTE NEUTROPHILS 4.4 thou/uL (1.6-8.1); BASOPHILS 0.5 %; EOSINOPHILS 1.6 %; HEMATOCRIT 33.8 % (42.0-52.0); HEMOGLOBIN 10.9 gm/dL (14.0-18.0); LYMPHOCYTES 24.6 %; MCH 25.1 pg (26.0-34.0); MCHC 32.2 g/dL (28.0-37.0); MCV 77.8 fL (80.0-100.0); MPV 7.1 fl. (7.2-11.1); NUCLEATED RBCS 0 /100WBC; PLATELET COUNT* 286 thou/uL (150-400); POLYS 66.3 %; RBC 4.34 mil/uL (4.50-6.00); RDW-CV 17.3 % (10.5-14.5); WBC 6.6 thou/uL (4.0-11.0)
== END ==
LOC: M.LAB 09:46
PROVIDERS: Internal Medicine Cardiovascular Disease
DX: D64.9 Anemia, unspecified (principal)

== ENCOUNTER 2018-11-18 17:29 | Inpatient (IN) | payer OTHER ==
[~2018-11-18] VITALS: Ht 188 cm; Wt 112.9 kg
[~2018-11-18 17:29] MED LIST changes: -NITROGLYCERIN0.4 MG SUBLING
[2018-11-18 17:36] VITALS: BP 133/77
[2018-11-18] MEDS ORDERED: COZAAR 25 MG TA25 M1 PO (17:41)
[2018-11-18] MEDS ORDERED: FLOMAX0.4 MG PO (17:42)
[2018-11-18] MEDS ORDERED: PROSCAR 5MG TABL5 MG PO (17:42)
[2018-11-18 18:13] LABS: ABSOLUTE EOSINOPHILS 0.1 thou/uL (0.0-0.7); ABSOLUTE LYMPHOCYTES 1.4 thou/uL (0.8-5.3); ABSOLUTE MONOCYTES 0.5 thou/uL (0.0-1.2); ABSOLUTE NEUTROPHILS 3.5 thou/uL (1.6-8.1); BASOPHILS 0.6 %; EOSINOPHILS 1.9 %; HEMATOCRIT 33.6 % (42.0-52.0); HEMOGLOBIN 11.2 gm/dL (14.0-18.0); LYMPHOCYTES 26.2 %; MCH 26.6 pg (26.0-34.0); MCHC 33.4 g/dL (28.0-37.0); MCV 79.5 fL (80.0-100.0); MONOCYTES 8.5 %; MPV 7.7 fl. (7.2-11.1); NUCLEATED RBCS 0 /100WBC; PLATELET COUNT* 173 thou/uL (150-400); POLYS 62.8 %; RBC 4.22 mil/uL (4.50-6.00); WBC 5.5 thou/uL (4.0-11.0)
[2018-11-18 18:18] LABS: CALCIUM 8.8 mg/dL (8.5-10.1); CREATININE 1.1 mg/dL (0.6-1.3); POTASSIUM 4.2 mmol/L (3.5-5.1)
[2018-11-18 18:27] LABS: ALBUMIN 3.4 g/dL (3.4-5.0); TOTAL BILIRUBIN 0.5 mg/dL (<0.1-1.0); TOTAL PROTEIN 7.1 g/dL (6.4-8.2); TROPONIN-I LEVEL 0.22 ng/mL (<0.06)
[2018-11-18 20:30] LABS: APTT 26.7 Seconds (25.0-31.3); INR 1.1; PROTIME 10.8 Seconds (9.20-11.50)
[2018-11-18 22:12] VITALS: BP 143/87
[2018-11-18 22:30] VITALS: BP 141/79
[2018-11-19] VITALS: BP 124/61
[2018-11-19 04:05] VITALS: BP 154/90
[2018-11-19 08:20] VITALS: BP 125/72
[2018-11-19 10:28] LABS: CHOLESTEROL 110 mg/dL (<200); HDL CHOLESTEROL 38 mg/dL (>40); LDL CHOLESTEROL 56 mg/dL (<100); SERUM ASSESSMENT Clear; TC:HDL 2.9 Ratio (Not establshd); TRIGLYCERIDE 81 mg/dL (<150); VLDL 16 mg/dL (<40)
--- NOTE | 2018-11-19 11:23 | EKG ---
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: Polo ARRIOLA : 1940 Requested By: Fanta Mcconnell Order Number: [id number] MD: Vernon Cazares Measurements Intervals [place] Rate: 81 P: 46 [place]: 194 QRS: -38 QRSD: 159 T: 118 QT: 424 QTc: 493 Interpretive Statements Sinus rhythm Left bundle branch block Compared to ECG 08/13/2017 08:45:19 No significant changes Electronically Signed On 11-19-2018 11:22:50 CDT by Vernon Cazares [email or web address] <ELECTRONICALLY SIGNED> By: Vernon Cazares MD, [facility] 11/19/18 1122 1738 1738 Vernon Cazares MD, [facility] /EPI
--- NOTE | 2018-11-19 11:28 | EKG ---
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 11/19/18 1128 0426 0426 Vernon Cazares MD, FACC /EPI
--- NOTE | 2018-11-19 11:32 | EKG ---
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
[2018-11-19 12:00] VITALS: BP 109/67
[2018-11-19] MEDS ORDERED: NITROGLYCERIN0.4 MG SUBLING (15:00)
[2018-11-19 15:07] VITALS: BP 109/67
--- NOTE | 2018-11-20 16:07 | CON ---
[address] [address] CONSULTATION Name: CHANEL SYKES JR Room: [address] IN M.R.#: [id number] Admission: 11/18/18 Attend Phys: Cisco Valencia MD Discharge: 11/19/18 Date of : 42 Report #: [id number] THIS REPORT FOR: //name// CC: Cisco Ashford DO DATE OF SERVICE: 11/19/2018 HISTORY OF PRESENT ILLNESS: The patient is a 78-year-old white male who I was asked to see in the hospital today after he was noted to have an abnormal troponin. The patient has an extensive past medical history. He had a presentation in 2005 with arm pain. He was found to have coronary artery disease and had a coronary stent placed by Dr. Butler at [facility]. He then did well until 07/2017 when he presented here to [place] with low back pain and chest pain. He ruled in for a non-STEMI. He was seen by Dr. Velasco. I actually performed a cardiac catheterization in 07/2017 from the right radial artery. Results showed a 50% narrowing of the mid LAD, 80% narrowing of a diagonal branch. No significant restenosis of the stent in the right coronary artery. Ejection fraction 45% with apical hypokinesis. He was loaded with Brilinta and given heparin. I then placed a stent in the diagonal artery. He has done well since that time. He took Brilinta for a year. He last saw Dr. Velasco in July of this year. The patient is not very active at this time. He denies any recent arm pain or chest heaviness. Denies exertional dyspnea. However, a couple of weeks ago, he noticed some lower abdominal pain. It was hard to take a deep breath. He saw his primary care physician, had an ultrasound of the gallbladder that showed no gallstones and a chest x-ray. He was back to see his doctor yesterday after he complained of constipation and hard to take a deep breath. He noticed some lower abdominal pain, but no vomiting, diarrhea or bleeding. He was sent over to the hospital and admitted. He denied any palpitation, syncope, edema, or fever. PAST MEDICAL HISTORY: Significant for removal of basal cell carcinoma, knee replacement, hypertension, hyperlipidemia, no diabetes. MEDICATIONS: Consists of aspirin, Lipitor, carvedilol, Proscar, losartan, omeprazole, Zoloft, Flomax. ALLERGIES: He has no known drug allergies. FAMILY HISTORY: Negative for heart disease. SOCIAL HISTORY: He is . He and his live in [place]. 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 Quit smoking years ago[place] [address] CONSULTATION Name: CHANEL SYKES JR Room: [address] IN ..#: [id number] Admission: 11/18/18 Attend Phys: Cisco Valencia MD Discharge: 11/19/18 Date of : 42 Report #: [id number] REVIEW OF SYSTEMS: He has had no history of stroke, asthma, peptic ulcer disease, liver disease, kidney disease. He had an elevated PSA in the past, had a biopsy that was negative. He wears glasses. No psychiatric illness. No chronic skin condition. PHYSICAL EXAMINATION: GENERAL: Revealed an elderly male who appeared in no distress. VITAL SIGNS: His blood pressure 120/70, pulse 70, he is afebrile. HEENT: He was anicteric. Conjunctivae pink. Mucous members moist. NECK: Neck veins nondistended. No carotid bruits. Neck supple. CHEST: Clear to auscultation. CARDIOVASCULAR: Regular rate and rhythm. ABDOMEN: Soft. EXTREMITIES: Had no edema. Posterior tibial pulse 1+ bilaterally. SKIN: Warm, dry. NEUROLOGIC: Nonfocal. LYMPH: No adenopathy. MUSCULOSKELETAL: No joint effusion. DIAGNOSTIC DATA: His ECG showed a sinus rhythm with a left bundle-branch block. His workup, he had portable chest x-ray that showed normal heart size, clear lung meredith. He had a CT scan of the chest, abdomen and pelvis with contrast yesterday that showed mild cardiomegaly, no pericardial effusion, no aortic dissection, no pulmonary embolus, some atelectasis. The gallbladder appeared normal. Kidneys were normal size, renal cyst, no bowel inflammation, colon diverticula were noted. Normal abdominal aorta. No dissection. Calcification in the left renal artery. There was an enhanced mass on the left upper pole kidney, a renal cell carcinoma cannot be excluded. There was enlarged paraaortic lymph node and metastatic disease cannot be excluded. LABORATORY DATA: His lab work: Sodium 142, creatinine 1.1. Liver function studies were normal. Troponin was 0.25. His white blood cell count 5.5, hemoglobin 11.2. IMPRESSION AND RECOMMENDATIONS: 1. Lower abdominal pain. Reason unclear. 2. Possible renal cell carcinoma. 3. Coronary artery disease. Borderline troponin. Would not recommend cardiac catheterization at this time. 4. Hypertension. The patient has been [place] [address] CONSULTATION Name: CHANEL SYKES JR Room: [address] IN .R.#: [id number] Admission: 11/18/18 Attend Phys: Cisco Valencia MD Discharge: 11/19/18 Date of : 42 Report #: [id number] 5. Hyperlipidemia. The patient is on a statin drug. 6. History of elevated PSA. <ELECTRONICALLY SIGNED> By: Vernon Cazares MD, FACC 11/20/18 1607 0904 0025Daraymundo Cazares MD, FACC /nt
== END 2018-11-19 17:10 | disposition home or self-care (01) | DRG 699 ==
LOC: M.ERS 17:29 → M.TBA-ER 20:28 → M.2W 20:28
PROVIDERS: Internal Medicine Cardiovascular Disease; Nurse Practitioner Family; Personal Emergency Response Attendant; ADMIT Internal Medicine
DX: N28.89 Other specified disorders of kidney and ureter (principal); I50.22 Chronic systolic (congestive) heart failure; B37.81 Candidal esophagitis; Z96.652 Presence of left artificial knee joint; K21.9 Gastro-esophageal reflux disease without esophagitis; E78.5 Hyperlipidemia, unspecified; I44.7 Left bundle-branch block, unspecified; I25.10 Atherosclerotic heart disease of native coronary artery without angina pectoris; I11.0 Hypertensive heart disease with heart failure; N40.0 Benign prostatic hyperplasia without lower urinary tract symptoms; Z95.5 Presence of coronary angioplasty implant and graft; Z87.891 Personal history of nicotine dependence; Z79.82 Long term (current) use of aspirin; Z79.899 Other long term (current) drug therapy; Z95.1 Presence of aortocoronary bypass graft

== ENCOUNTER → 2018-12-19 | Outpatient (CLI) | payer OTHER ==
[~2018-12-19] MED LIST changes: +COZAAR 25 MG TA25 M1 PO; +NITROGLYCERIN0.4 MG SUBLING; +PROSCAR 5MG TABL5 MG PO
== END ==
LOC: M.RAD 09:44
DX: R10.9 Unspecified abdominal pain (principal); D50.9 Iron deficiency anemia, unspecified

== ENCOUNTER → 2020-02-08 | Outpatient (CLI) | payer OTHER | LOC: M.LAB 10:29 | PROVIDERS: ATTEND Internal Medicine Cardiovascular Disease | DX: U07.1 COVID-19 (principal) ==

== ENCOUNTER 2020-02-22 08:20 | Emergency (ER) | payer OTHER ==
[~2020-02-22] VITALS: Ht 188 cm; Wt 111.1 kg
[2020-02-22] MEDS ORDERED: ENTRESTO 24 MG1 EACH PO (08:34)
[2020-02-22 08:54] LABS: ABSOLUTE EOSINOPHILS 0.1 thou/uL (0.0-0.7); ABSOLUTE LYMPHOCYTES 0.6 thou/uL (0.8-5.3); ABSOLUTE MONOCYTES 0.2 thou/uL (0.0-1.2); ABSOLUTE NEUTROPHILS 1.9 thou/uL (1.6-8.1); BASOPHILS 1.4 %; EOSINOPHILS 2.9 %; HEMATOCRIT 37.4 % (42.0-52.0); HEMOGLOBIN 12.7 gm/dL (14.0-18.0); MCH 29.2 pg (26.0-34.0); MONOCYTES 5.8 %; MPV 7.8 fl. (7.2-11.1); NUCLEATED RBCS 0 /100WBC; PLATELET COUNT* 117 thou/uL (150-400); POLYS 67.9 %; RBC 4.35 mil/uL (4.50-6.00); RDW-CV 19.4 % (10.5-14.5); WBC 2.8 thou/uL (4.0-11.0)
[2020-02-22 09:08] LABS: CALCIUM 8.2 mg/dL (8.5-10.1); CREATININE 1.2 mg/dL (0.6-1.3); POTASSIUM 4.1 mmol/L (3.5-5.1)
[2020-02-22] MEDS ORDERED: TESSALON PERLE100 M1 PO (09:34)
[2020-02-22 10:00] VITALS: BP 113/52
== END 2020-02-22 10:14 | disposition home or self-care (01) ==
LOC: M.ERS 08:20
PROVIDERS: Emergency Medicine Emergency Medical Services
DX: U07.1 COVID-19 (principal); I10 Essential (primary) hypertension; E78.5 Hyperlipidemia, unspecified; K21.9 Gastro-esophageal reflux disease without esophagitis; Z90.49 Acquired absence of other specified parts of digestive tract; Z96.652 Presence of left artificial knee joint; Z95.5 Presence of coronary angioplasty implant and graft

== ENCOUNTER → 2020-08-09 | Outpatient (CLI) | payer OTHER ==
[2020-08-09] VITALS (9 sets, daily range): BP systolic 115–135; BP diastolic 48–68
[~2020-08-09] VITALS: Ht 188 cm; Wt 112.0 kg
[~2020-08-09] MED LIST changes: +DIFLUCAN100 MG PO; +ENTRESTO 24 MG1 EACH PO; +ENTRESTO 49 MG1 EACH PO; +MAGNESIUM400 M1 PO; +OMEPRAZOLE 20 M20 M1 PO; +PROSCAR 5MG TABL5 M1 PO; +TESSALON PERLE100 M1 PO; +ZOLOFT 50 MG TA50 M1 PO; +ZOLOFT 50 MG TA50 MG PO
[2020-08-09 09:58] LABS: HEMATOCRIT 39.3 % (42.0-52.0); HEMOGLOBIN 13.4 gm/dL (14.0-18.0); MCH 31.2 pg (26.0-34.0); MCHC 34.2 g/dL (28.0-37.0); MCV 91.4 fL (80.0-100.0); MPV 7.4 fl. (7.2-11.1); RBC 4.3 mil/uL (4.50-6.00); RDW-CV 15.8 % (10.5-14.5); WBC 4.3 thou/uL (4.0-11.0)
[2020-08-09 10:05] LABS: CALCIUM 8.6 mg/dL (8.5-10.1); POTASSIUM 4.5 mmol/L (3.5-5.1)
[2020-08-09 10:08] LABS: APTT 26.7 Seconds (25.0-31.3); PROTIME 10.7 Seconds (9.20-11.50)
[2020-08-09 10:09] LABS: ALBUMIN 3.8 g/dL (3.4-5.0); TOTAL BILIRUBIN 0.6 mg/dL (<0.1-1.0)
--- NOTE | 2020-08-09 11:09 | EKG ---
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: : 1940 Requested By: Doyle Velasco Order Number: [id number] Danyelle MD: Vernon Cazares Measurements Intervals [place] Rate: 63 P: 28 [place]: 204 QRS: -35 QRSD: 180 T: 146 QT: 487 QTc: 499 Interpretive Statements Sinus rhythm Probable left atrial enlargement Left bundle branch block Compared to ECG 11/19/2018 10:20:37 rate has slowed Electronically Signed On 08-09-2020 11:09:06 NUTRITION PROGRAM INSTRUCTOR by Vernon Cazares [email or web address] <ELECTRONICALLY SIGNED> By: Vernon Cazares MD, [facility] 08/09/20 1109 1014 1014 Vernon Cazares MD, [facility] /EPI
--- NOTE | 2020-08-11 14:35 | CARD ---
[address] [address] CARDIAC CATH REPORT Name: CHANEL SYKES JR Room: [facility]#: [id number] Admission: 08/09/20 Attend Phys: Doyle Velasco MD Discharge: Date of : 42 Report #: [id number] THIS REPORT FOR: cc: Andrea Ashford Mohammad K. DO ~ Doyle Velasco MD [facility] APPROVED REPORT Study performed: 08/09/2020 10:21:59 Patient Details Patient Status: Out-Patient Room #: The patient is a 79 year-old male Event Personnel Doyle Velasco Graphic Illustrator, Emily Caicedo RN Rolling Up Machine Operator, Andrey Duff Scrub, Elizabeth Orosco RTR Monitor, Pancho Butterfield RTR Monitor Procedures Performed Left Heart Cath w/or w/o Coronaries [id number] [facility] Hemostasis with Hemoband Admission/Lab Medications/Medications given during procedure Oxygen Nasal cannula 2 l per min, Midazolam (Versed) IV 1 mg, Fentanyl IV 25 mcg, Lidocaine Subcut 10 ml, Nitroglycerin IA 400 mcg, Verapamil IA 5 mg Procedure Narrative The patient was brought electively to the Cardiac Catheterization Laboratory and was prepped and draped in a sterile manner. The right wrist was infiltrated with 2% Lidocaine subcutaneous anesthesia. A 6Fr Slender Douglas sheath was inserted into the right radial artery. Coronary angiography was performed using coronary diagnostic catheters. The right coronary system was accessed and visualized with a Diagnostic JCR4 Guide 6Fr catheter. The left coronary system was accessed and visualized with a Diagnostic TIG 6Fr catheter. The left ventricle was accessed and visualized with a Diagnostic Angeled Pigtail 5Fr catheter. Left ventricular/Aortic Valve gradient assessed via catheter pullback. Closure device was deployed with a 6 Fr Radial Vasc band. The patient tolerated the procedure well and there were no complications associated with the procedure. [place] [address] CARDIAC CATH REPORT Name: CHANEL SYKES JR Room: [facility]#: [id number] Admission: 08/09/20 Attend Phys: Doyle Velasco MD Discharge: Date of : 42 Report #: [id number] Intraoperative Conscious Sedation Sedation start time: 10:59 Case end Time: 11:46 Fentanyl 25 mcg Versed 1 mg Fluoro Time: 22.2 minutes Dose: DAP 289203 cGycm2 2951.35 mGy Contrast Type and Amount: Visipaque 200 ml Diagnostic Cath Left Main The left main coronary artery is normal and trifurcates into a left anterior descending, intermediate ramus and circumflex coronary arteries. LAD The left anterior descending coronary artery is moderately 30% plaque proximally and in the midportion. The distal vessel is free of significant disease. Diagonal 1 A moderate-sized first diagonal branch has a 50% ostial narrowing. There is a widely patent stent in the proximal portion of the vessel. Circumflex The circumflex coronary artery has minimal 10% plaquing proximally. OM1 A moderate-sized first obtuse marginal branch is normal. Right Coronary The right coronary artery has a widely patent stent proximally. Beyond the stent is 20% narrowing. Distally the right coronary is 20% narrowed. R PDA A moderate-sized PDA branch is normal. RPLV A bifurcating posterior lateral branch is normal. Ramus A large intermediate ramus branch with diagonal distribution is normal. Left Ventriculography The left ventricle is moderately dilated in size with Diminished contractility. The left ventricular ejection fraction is estimated to be 20%. Hemodynamics The aortic pressure is 97/41 mmHg with a mean of 54 mmHg. The left ventricular pressure is 95/2 mmHg with a mean of mmHg. The left ventricular end diastolic pressure is 9 mmHg. Conclusion 1. Nonocclusive coronary artery disease as outlined above. 2. Widely patent stents in the proximal right and first diagonal coronary arteries. 3. Normal left jugular end-[place] [address] CARDIAC CATH REPORT Name: CHANEL SYKES JR [id number] Admission: 08/09/20 Attend Phys: Doyle Velasco MD Discharge: Date of : 42 Report #: [id number] 4. Severe global LV systolic dysfunction. Recommendations 1. Continue medical management and aggressive risk factor modification. <ELECTRONICALLY SIGNED> By: Doyle Velasco MD, FACC 08/11/20 1435 1435 1435Micrigoberto Velasco MD, FACC /INF
== END | disposition home or self-care (01) ==
LOC: M.CL 09:01
PROVIDERS: ATTEND Internal Medicine Cardiovascular Disease
DX: R94.39 Abnormal result of other cardiovascular function study (principal); I25.10 Atherosclerotic heart disease of native coronary artery without angina pectoris; I11.0 Hypertensive heart disease with heart failure; I50.22 Chronic systolic (congestive) heart failure; E78.00 Pure hypercholesterolemia, unspecified; I42.8 Other cardiomyopathies; I65.23 Occlusion and stenosis of bilateral carotid arteries; I25.2 Old myocardial infarction; K21.9 Gastro-esophageal reflux disease without esophagitis; E78.5 Hyperlipidemia, unspecified; Z98.890 Other specified postprocedural states; Z79.899 Other long term (current) drug therapy; Z95.5 Presence of coronary angioplasty implant and graft; Z87.891 Personal history of nicotine dependence; Z85.53 Personal history of malignant neoplasm of renal pelvis; Z98.42 Cataract extraction status, left eye; Z98.41 Cataract extraction status, right eye; Z96.652 Presence of left artificial knee joint; Z20.822 Contact with and (suspected) exposure to COVID-19

== ENCOUNTER → 2020-11-08 | Outpatient (CLI) | payer OTHER | LOC: M.RAD 09:05 | PROVIDERS: ATTEND Nurse Practitioner | DX: I50.22 Chronic systolic (congestive) heart failure (principal); R06.02 Shortness of breath; Z95.0 Presence of cardiac pacemaker ==

== ENCOUNTER → 2020-12-15 | Outpatient (CLI) | payer OTHER ==
--- NOTE | 2020-12-23 11:44 | PF ---
[address] [address] PULMONARY FUNCTION REPORT Name: CHANEL SYKES JR Room: [facility]#: [id number] Admission: 12/15/20 Attend Phys: Doyle Velasco MD Discharge: Date of : 42 Report #: [id number] THIS REPORT FOR: cc: Andrea Ashford Mohammad K. DO Pervez, Adeel MD ~ DOC #: [id number] Konstantin Epstein MD DATE OF VISIT: 12/15/2020 PULMONARY FUNCTION TEST: The FEV1/FVC ratio is decreased to 68% with an FVC decreased to 68% as well. The FEV1 is decreased to 64% and the FEF 25-75 is decreased to 57%. After the administration of a bronchodilator, there is a 38% increase in the FEF 25-75. There is no increase in any of the other values mentioned here. The patient's post-bronchodilator FEV1 is 2.19 liters. FLOW VOLUME LOOP: The patient's flow volume loop is concave upwards. LUNG VOLUMES: The total lung capacity is normal at 88% with the residual volume is also normal at 100%. DIFFUSION CAPACITY: The DLCO as adjusted for hemoglobin is decreased to 49%. IMPRESSION: 1. There is a restrictive pattern on spirometry restriction; however, it is not noted on lung volumes. The likelihood is that the underlying etiology is moderate obstruction with some evidence of reversibility as evidenced by an increase in FEF 25-75 after the administration of a bronchodilator. Poor effort and neuromuscular weakness can also lead to this picture; however, it appeared to be less likely. 2. Normal lung volumes. 3. DLCO as adjusted for hemoglobin decreased to 49%. Konstantin Epstein MD AP/SIM/AMI <ELECTRONICALLY SIGNED> By: Konstantin Epstein MD 12/23/20 1144 14 2307Amathew Epstein MD /nt
== END ==
LOC: M.PUL 09:00
PROVIDERS: ATTEND Internal Medicine Cardiovascular Disease
DX: I50.22 Chronic systolic (congestive) heart failure (principal); R06.02 Shortness of breath; I42.8 Other cardiomyopathies; Z86.16 Personal history of COVID-19